=== PATIENT | male | born 1930 | race Caucasian/White ===

== ENCOUNTER 2018-08-02 17:16 | Day surgery (SDC) | payer MEDICARE ==
[2018-08-02] MEDS: HEPARIN SOD,PORK IN 0.45% NACL 25,000 UNIT in 0.45% NACL 1 250ML.BAG IV SCH (10:47)
[~2018-08-02 17:16] MED LIST: ALPRAZolam 0.25 MG TAB ONE; ALPRAZolam 0.25 MG TAB PO PRN; ALPRAZolam 0.5 MG TAB PO PRN; ATROPINE SULFATE 0.1 MG/ML 10ML SYRINGE IV PRN; BIVALIRUDIN 250 MG in SODIUM CHLORIDE 0.9% 50 ML IV ONE; BIVALIRUDIN BOLUS 250 MG/50 ML IV ONE; CLOPIDOGREL 75 MG TAB ONE; CLOPIDOGREL 75 MG TAB PO ONE; IOPAMIDOL-370 100ML BTL INJ ONE; IV FLUID CONTINUATION 900 ML IV ONE; LIDOCAINE 1% INJ 10MG/ML (20 ML MDV) SQ ONE; MAG HYDROX/AL HYDROX/SIMETH 30 ML CUP PO PRN; NITROGLYCERIN SL TABS 0.4 MG TAB SUBLINGUAL PRN; RX INFO: IV CONTRAST WAS GIVEN 1 EACH MISC MISCELLANE PRN; SODIUM CHLORIDE 0.9% 1,000 ML IV SCH; SODIUM CHLORIDE 0.9% 1,000 ML in EMPTY BAG 1 BAG IV ONE; ZOLPIDEM 5 MG TAB PO PRN
[2018-08-02] MEDS ORDERED: ACETAMINOPHEN IV (For NPO) 1,000 MG in EMPTY BAG 1 BAG IVPB ONE (18:33)
[2018-08-02] MEDS ORDERED: LORazepam 0.5 MG TAB PO PRN (18:33)
[2018-08-02] MEDS ORDERED: guaiFENesin SYRUP 100MG/5ML 200 MG/10 ML CUP PO PRN (18:33)
[2018-08-02] MEDS ORDERED: HALOPERIDOL LACTATE 5 MG/ML 1 ML VIAL IM PRN (18:33)
[2018-08-02] MEDS ORDERED: ATROPINE OPHTH SOLN 1% 5ML BTL SUBLINGUAL PRN (18:33)
[2018-08-02] MEDS ORDERED: DRY MOUTH SPRAY 44.3 SPRAY/44.3 ML SPRAY MUCOUS MEM PRN (18:33)
[2018-08-02] MEDS ORDERED: ONDANSETRON 4 MG/2 ML VIAL IVP PRN (18:33)
--- NOTE | 2018-08-02 19:39 | PTCA ---
PERCUTANEOUSTRANS CORORONARY ANGIOGRAPHY DATE OF SERVICE: 08/02/2018 PERFORMING PHYSICIAN: Dave Centeno MD, electricity trader. PROCEDURE PERFORMED: Successful stenting of the proximal right coronary artery using a 3.5 x 18 mm Xience drug-eluting stent which was post-dilated using a 3.75 mm NC balloon with excellent angiographic results. INDICATION: This is a pleasant 88-year-old gentleman who presented to the [facility] with chest discomfort concerning for angina and underwent a heart catheterization by Dr. Mcghee. He was found to have severe disease involving the proximal right coronary artery. He was brought today to undergo an intervention of the RCA. APPROACH: Right common femoral artery. COMPLICATIONS: None. LEVEL OF SEDATION: Moderate, with sedation length of 33 minutes. PROCEDURE DESCRIPTION: After obtaining informed consent, the patient was brought to the cardiac medical laboratory technicians. Please refer to the diagnostic heart catheterization that was performed by Dr. Mcghee. After that I exchanged the sheath for a new sheath at the right groin. Subsequently I started anticoagulation using Angiomax. Subsequently I engaged the RCA using JR4 guide. I wired using a run-through wire. After that I did balloon angioplasty using a 3.0 mm balloon before I deployed a 3.5 x 18 mm Xience drug-eluting stent, which was post-dilated using 3.75 mm NC balloon. The procedure was completed without any complication. POST-PROCEDURE MANAGEMENT: 1. Dual anti-platelet therapy. 2. Risk factor modifications. 3. Follow up with the patient. MMODL / IJN: [id number] /
[2018-08-02] MEDS: ATORVASTATIN 80 MG TAB PO SCH (19:57)
[2018-08-03 07:56] LABS: Basophils % (A) 0 %; Eosinophils % (A) 0 %; HCT 38.6 % (39.0-53.0); HGB 12.3 gm/dL (13.0-17.5); Lymphocytes # (A) 0.9 k/uL (1.0-4.8); Lymphocytes % (A) 5 %; MCH 30.6 pg (25.0-35.0); MCV 95.7 fL (80.0-100.0); Mean Platelet Volume 7.6; Monocytes # (A) 0.7 k/uL (0-1.0); Monocytes % (A) 4 %; Neutrophils # (A) 14.7 k/uL (1.3-7.7); Neutrophils % (A) 89 %; Platelet Count 256 k/uL (150-450); RBC 4.03 m/uL (4.30-5.90); RDW 13.7 % (11.5-15.5); WBC 16.4 k/uL (3.8-10.6)
[2018-08-03 08:16] LABS: Potassium 5.3 mmol/L (3.5-5.1)
[2018-08-03] MEDS ORDERED: ASPIRIN 325 MG TAB PO SCH (09:00)
[2018-08-03] MEDS ORDERED: CLOPIDOGREL 75 MG TAB PO SCH (15:22)
[2018-08-03] MEDS: ATORVASTATIN 80 MG TAB PO SCH (15:59)
[2018-08-03] MEDS: HEPARIN SOD,PORK IN 0.45% NACL 25,000 UNIT in 0.45% NACL 1 250ML.BAG IV SCH (15:59)
[2018-08-03 16:15] VITALS: BMI 20.9
[2018-08-03 16:26] VITALS: BP 113/67; PULSE 80; RESP 16; TEMP 97.8
--- NOTE | 2018-08-06 14:44 | P.DS ---
Providers Attending physician: Dave Centeno Consults: 08/02/18 15:22 Consult Physician Routine Consulting Provider: [facility] Consult Reason/Comments: Post Interventional patient Do you want consulting provider notified?: Already Contacted Placement Type Exists?: Yes Primary care physician: Stated None Hospital Course: This is a pleasant 88-year-old male past medical history significant for hypertension, dyslipidemia and benign prostatic hyperplasia. He was transferred to [facility] after undergoing a cardiac catheterization secondary to an abnormal stress test at [facility] revealing severe disease involving the proximal RCA. He was underwent successful angioplasty of the distal RCA and was placed on dual antiplatelet therapy. In the recovery phase he developed significant hypotension and lethargy. Despite receiving fluid boluses his blood pressure was not responding. His heart rate was also noted to be down in the 40s with no palpable pulse. Dr. Centeno immediately came to the bedside. Extensive conversation was had with the family and the caregiver regarding his CODE STATUS. Prior to the procedure the patient was a DO NOT RESUSCITATE. It was determined that they wish to continue his DO NOT RESUSCITATE status. At that time a decision was made to place the patient on comfort care and watch him through the night. Per nursing staff through the night he became much more responsive and his blood pressure was stable. He is seen and examined resting comfortably in bed in no acute distress. He is alert and oriented 3. He denies symptoms of chest discomfort, shortness of breath, dizziness or palpitations. His right groin soft, nontender, no bleeding, no ecchymosis, no hematoma and dry. Repeat EKG reveals sinus mechanism with first degree AV block. No acute ST or T-wave abnormalities. Heart rate 77 GENERAL: Well-appearing, well-nourished and in no acute distress. NECK: Supple without JVD or thyromegaly. LUNGS: Breath sounds clear to auscultation bilaterally. Respiration equal and unlabored. No wheezes, rales or rhonchi. HEART: Regular rate and rhythm without murmurs, rubs or gallops. S1 and S2 heard. EXTREMITIES: Normal range of motion, no edema. No clubbing or cyanosis. Peripheral pulses intact. Right groin soft, dry and intact with no ecchymosis, hematoma or bleeding. ASSESSMENT Coronary artery disease status post stent placement to the distal RCA Episode of hypotension post catheterization, resolved Hypertension Dyslipidemia PLAN Stable for discharge from a cardiac perspective. Patient has been initiated on Plavix 75 mg daily and Lopressor 12.5 mg twice a day, atorvastatin has been increased to 80 mg daily. Discontinue amlodipine. Have complete metabolic panel drawn in 3 days. Follow up appointment with Dr. Mcghee made for August 09 at 1430. All discharge instructions have been communicated to the primary caregiver at the bedside. Nurse Practitioner note has been reviewed, I agree with a documented findings and plan of care. Patient was seen and examined. Patient Condition at Discharge: Stable Plan - Discharge Summary Discharge Rx Participant: No New Discharge Prescriptions: New Atorvastatin [Lipitor] 80 mg PO HS #90 tab Nitroglycerin Sl Tabs [Nitrostat] 0.4 mg SUBLINGUAL Q5M PRN #1 bottle PRN Reason: Chest Pain Continue CLIDINIUM-chlordiazePOXIDE [Librax] 1 - 2 each PO AC-TID PRN PRN Reason: Abdominal Distention predniSONE 2.5 mg PO DIRECTED Temazepam [Restoril] 15 mg PO HS PRN PRN Reason: Insomnia Tamsulosin HCl [Flomax] 0.4 mg PO HS Famotidine [Pepcid] 20 mg PO BID Aspirin 81 mg PO DAILY Vit C/E/Zn/Coppr/Lutein/Zeaxan [Preservision Areds 2 Softgel] 2 tab PO BID Multivitamin [Men's Multi-Vitamin] 1 each PO DAILY Meloxicam [Mobic] 7.5 mg PO DIRECTED PRN PRN Reason: Pain Diphenoxylate HCl/Atropine [Lomotil] 1 tab PO BID PRN PRN Reason: Diarrhea Dicyclomine [Bentyl] 10 mg PO BID Oxybutynin Chloride [Ditropan] 5 mg PO HS Clopidogrel [Plavix] 75 mg PO DAILY #90 tab Metoprolol Tartrate [Lopressor] 12.5 mg PO BID #180 tab Discontinued Nitroglycerin Sl Tabs [Nitrostat] 0.4 mg SUBLINGUAL Q5M PRN PRN Reason: Chest Pain Simvastatin [Zocor] 20 mg PO HS amLODIPine [Norvasc] 10 mg PO DAILY Nitroglycerin Sl Tabs [Nitrostat] 0.4 mg SUBLINGUAL Q5M PRN PRN Reason: Chest Pain Discharge Medication List Aspirin 81 mg PO DAILY 11/21/14 [History] CLIDINIUM-chlordiazePOXIDE [Librax] 1 - 2 each PO AC-TID PRN 11/21/14 [History] Dicyclomine [Bentyl] 10 mg PO BID 11/21/14 [History] Diphenoxylate HCl/Atropine [Lomotil] 1 tab PO BID PRN 11/21/14 [History] Famotidine [Pepcid] 20 mg PO BID 11/21/14 [History] Meloxicam [Mobic] 7.5 mg PO DIRECTED PRN 11/21/14 [History] Multivitamin [Men's Multi-Vitamin] 1 each PO DAILY 11/21/14 [History] Tamsulosin HCl [Flomax] 0.4 mg PO HS 11/21/14 [History] Temazepam [Restoril] 15 mg PO HS PRN 11/21/14 [History] Vit C/E/Zn/Coppr/Lutein/Zeaxan [Preservision Areds 2 Softgel] 2 tab PO BID 11/21 [History] predniSONE 2.5 mg PO DIRECTED 11/21/14 [History] Oxybutynin Chloride [Ditropan] 5 mg PO HS 08/02/18 [History] Atorvastatin [Lipitor] 80 mg PO HS #90 tab 08/03/18 [Rx] Clopidogrel [Plavix] 75 mg PO DAILY #90 tab 08/03/18 [Rx] Metoprolol Tartrate [Lopressor] 12.5 mg PO BID #180 tab 08/03/18 [Rx] Nitroglycerin Sl Tabs [Nitrostat] 0.4 mg SUBLINGUAL Q5M PRN #1 bottle 08/03/18 [ Rx] Follow up Appointment(s)/Referral(s): Dariel Mcghee MD [STAFF PHYSICIAN] - 08/09/18 2:30 pm Bay Stern DO [Doctor of Osteopathic Medicine] - 1 Week Ambulatory/Diagnostic Orders: Comprehensive Metabolic Panel [LAB.AMB] Time Frame: 3 Days, Location: None Selected Patient Instructions/Handouts: *Surgery [facility] - After Heart Catheterization - Supervisor Chassis Assembly Instructions, Heart Catheterization (DC)
== END 2018-08-03 17:35 | disposition home or self-care (01) ==
LOC: CATHCVL 17:16 → 4SSUR 17:23 → CATHCVL 08-03 17:35
PROVIDERS: ATTEND Internal Medicine Interventional Cardiology
DX: I25.10 Atherosclerotic heart disease of native coronary artery without angina pectoris (principal); R94.39 Abnormal result of other cardiovascular function study; I10 Essential (primary) hypertension; E78.5 Hyperlipidemia, unspecified; N40.0 Benign prostatic hyperplasia without lower urinary tract symptoms; I44.0 Atrioventricular block, first degree; M19.90 Unspecified osteoarthritis, unspecified site; H54.3 Unqualified visual loss, both eyes; Z88.1 Allergy status to other antibiotic agents; Z88.0 Allergy status to penicillin; Z88.2 Allergy status to sulfonamides; Z88.3 Allergy status to other anti-infective agents; Z79.82 Long term (current) use of aspirin; Z79.899 Other long term (current) drug therapy; Z79.52 Long term (current) use of systemic steroids
CPT/HCPCS: 80048; 85025; C9600; C1887; C1725 ×3; C1894; C1769; C1760; C1874; J2001; J0583; Q9967; J1644

== ENCOUNTER → 2019-08-05 | Outpatient (CLI) | payer MEDICARE ==
--- NOTE | 2019-08-06 05:14 | MR ---
EXAMINATION TYPE: MR lumbar spine wo con DATE OF EXAM: 08/05/2019 COMPARISON: None HISTORY: 89-year-old male with fall couple weeks ago and pain, L1 Fracture TECHNIQUE: Multiplanar, multisequence images of the lumbar spine were acquired. FINDINGS: Incidental marked distention of the urinary bladder measuring up to nearly 14 cm. Correlation should needs to be made to exclude involuntary urinary retention. There is vertebral compression collapse of the L1 vertebral body. The central portion of the vertebra l body shows complete height loss. A fragment of the superior endplate is retropulsed into the spinal canal causing focal moderate central spinal canal stenosis and sharp abutment at the tip of the conu s medullaris. Conus medullary itself is located at a normal level. Additional horizontally oriented superior endplate fracture of L1 with possible fluid cleft within. E dematous changes present throughout the remainder of the vertebral body. Some of the edematous change may extend into the bilateral pedicles. Moderate to advanced multilevel degenerative disc disease. Hypertrophic facet arthropathy throughout with levels of ligamentum flavum thickening. Trace grade 1 anterolisthesis at L3-L4 and L4-L5. Above-mentioned focal moderate spinal canal stenosis at the L1 to secondary to retropulsion. At L2-L3, disc bulge and thickened ligamentum flavum results in mild overall spinal canal stenosis. N o other significant spinal canal stenosis is seen. On the right, degenerative changes contribute to moderate neural foraminal stenoses at T11-T12, T12-L 1, and L1/L2. Mild to moderate at the remaining levels but with a prominent facet spur possibly abutt ing the exiting right L4 nerve root. On the left, changes result in moderate neural foraminal stenoses from T12 through L5 levels, greates t at L1-L2 and L2-L3. IMPRESSION: 1. Prominent distention of the urinary bladder. Please correlate to exclude involuntary urinary reten tion. 2. L1 vertebral compression collapse. There is complete height loss of the central portion of the michael tebral body. Retropulsion results in moderate central spinal canal stenosis and sharp abutment onto t he tip of the conus medullaris. 3. Additional superior endplate fracture of L2 with a horizontal fluid cleft. The presence of marrow edema suggests a more acute injury though the fluid cleft can be seen in Kummel's disease. 4. As some of the marrow signal changes extend into the L2 pedicles, consider nuclear medicine whole body bone scan to survey the entire skeleton and exclude the possibility of a pathologic fracture. Os teoporotic fractures remain favored. 5. Moderate to advanced multilevel degenerative disc disease and hypertrophic facet arthropathy with degenerative grade 1 anterolisthesis at L3-L4 L4-L5. 6. Mild overall spinal canal stenosis at L2-L3. Variable moderate bilateral neuroforaminal stenoses a s outlined above.
== END | disposition home or self-care (01) ==
LOC: RADMRIMAIN 07:43
PROVIDERS: ATTEND Family Medicine
DX: S32.029A Unspecified fracture of second lumbar vertebra, initial encounter for closed fracture (principal); M48.56XA Collapsed vertebra, not elsewhere classified, lumbar region, initial encounter for fracture; M48.061 Spinal stenosis, lumbar region without neurogenic claudication; M43.16 Spondylolisthesis, lumbar region; M51.36 Other intervertebral disc degeneration, lumbar region; M46.96 Unspecified inflammatory spondylopathy, lumbar region
CPT/HCPCS: 72148